=== PATIENT | male | born 1945 | race Caucasian/White ===

== ENCOUNTER 2022-11-10 08:00 | Outpatient (CLI) | payer MEDICARE, BC | END 2022-11-10 23:59 | disposition home or self-care (01) | LOC: LAB.R 08:00 | PROVIDERS: ATTEND Physician Assistant Medical | DX: N39.0 Urinary tract infection, site not specified (principal) | CPT/HCPCS: 87086; 87181 ==

== ENCOUNTER 2022-11-18 10:40 | Outpatient (CLI) | payer MEDICARE, BC ==
[2022-11-18] MEDS ORDERED: iohexoL-300 100 ML VIAL ONE (10:47)
--- NOTE | 2022-11-18 16:39 | CT Report ---
PROCEDURE: CHEST W INDICATIONS: PROSTATE CA CONTRAST: 100ml Omnipaque 300 TECHNIQUE: After the administration of intravenous contrast, 1 mm axial images were acquired from the pulmonary apices through the posterior costophrenic angles. Axial 5 mm soft tissue kernel reconstructions were performed as well as 8 mm axial MIP and coronal and sagittal 5 mm reformations. For radiation dose reduction, the following was used: automated exposure control, adjustment of mA and/or kV according to patient size. COMPARISON: None. FINDINGS: Image quality: Good Lungs and pleura:No airspace consolidation. Scattered scarring/atelectasis. No effusion. No overtly s uspicious nodule. Suspected granuloma/micronodules are present, for example in the right series 8 phillip ge 123, and on the left image 181, attention on follow-up Indeterminate subpleural nodularity at the diaphragmatic surfaces (coronal image 32 and 33, measuring a thickness of 6 to 7 mm. Mediastinum, heart, and esophagus: No hiatal hernia. Normal heart size. Coronary calcifications. No p athologic adenopathy by size criteria. Chest wall and thyroid: Thyroid is unremarkable. No axillary or supraclavicular adenopathy identified . Upper abdomen: Separately dictated Bones: Degenerative changes without acute or suspicious osseous finding. Partially visualized left hu meral head hardware. IMPRESSION: No definite kaveh metastases or suspicious lung nodules. However, there is subpleural nodularity bakari g the bilateral diaphragmatic surfaces, measuring 6 to 7 mm in thickness, for which close attention o n follow-up is recommended in the setting of malignancy history other findings as above.. Reviewed by: Chato Salter MD on 11/18/2022 4:38 PM PDT Approved by: Chato Salter MD on 11/18/2022 4:38 PM PDT Station ID: [id number]
--- NOTE | 2022-11-18 16:43 | CT Report ---
PROCEDURE: ABDOMEN/PELVIS W INDICATIONS: PROSTATE CA CONTRAST: 100ml Omnipaque 300 TECHNIQUE: After the administration of IV and oral contrast, 5 mm thick sections acquired from the diaphragms to the symphysis. 5 mm thick coronal and sagittal reformats were acquired. For radiation dose reducti on, the following was used: automated exposure control, adjustment of mA and/or kV according to freeman ent size. COMPARISON: None FINDINGS: Image quality: Good Lower chest: Separately dictated Solid organs: The liver is unremarkable. No pathologic dilation of biliary tree or pancreatic duct. T he gallbladder is unremarkable. The pancreatic parenchyma is mildly atrophic. No splenomegaly. No adr enal nodules. No hydronephrosis. Vessels and lymph nodes: The portal vein is patent. No pathologic adenopathy by size criteria. Bowel and peritoneum: No small bowel obstruction. No pathologic ascites. Possible tiny hiatal hernia and possible reflux into the distal esophagus, not well evaluated on CT. There are colonic diverticul a. Body wall: Tiny fat-containing inguinal and umbilical hernias. Pelvis: Bladder is unremarkable. Primary prostate malignancy with heterogeneous right prostate enhanc ement, not well evaluated on CT. Bones: Tiny osseous sclerotic lesions may represent bone islands most notably at the proximal right f emur. No overtly suspicious bone lesion identified. There are degenerative changes. IMPRESSION: No active metastases identified. Indeterminate small sclerotic lesions, for example in the right prox imal femur might represent bone islands, attention on follow-up. Primary prostate malignancy is not w ell evaluated on CT. Chest findings are separately dictated. Reviewed by: Chato Salter MD on 11/18/2022 4:42 PM PDT Approved by: Chato Salter MD on 11/18/2022 4:42 PM PDT Station ID: [id number]
[2022-11-18] MEDS ORDERED: DIATRIZOATE MEGLU/DIATRIZO SOD 30 ML BOTTLE PO ONE (18:02)
[2022-11-18] MEDS ORDERED: iohexoL-300 100 ML VIAL IVP ONE (18:03)
== END 2022-11-18 10:41 | disposition home or self-care (01) ==
LOC: DI 10:40
PROVIDERS: ATTEND Urology
DX: C61 Malignant neoplasm of prostate (principal); R91.8 Other nonspecific abnormal finding of lung field; M89.9 Disorder of bone, unspecified
CPT/HCPCS: 71260; 74177; Q9963; Q9967

== ENCOUNTER 2023-06-11 07:04 | Outpatient (CLI) | payer MEDICARE, BC | END 2023-06-11 07:05 | disposition home or self-care (01) | LOC: LAB.S 07:04 | PROVIDERS: ATTEND Nurse Practitioner Adult Health | DX: C61 Malignant neoplasm of prostate (principal) | CPT/HCPCS: 36415; 84153 ==

== ENCOUNTER 2023-07-01 07:37 | Outpatient (CLI) | payer MEDICARE, BC | END 2023-07-01 07:38 | disposition home or self-care (01) | LOC: DI 07:37 | PROVIDERS: ATTEND Physician Assistant Medical | DX: R01.1 Cardiac murmur, unspecified (principal); I51.7 Cardiomegaly | CPT/HCPCS: 93306 ==

== ENCOUNTER 2023-08-04 07:05 | Outpatient (CLI) | payer MEDICARE, BC | END 2023-08-04 07:06 | disposition home or self-care (01) | LOC: LAB.S 07:05 | PROVIDERS: ATTEND Nurse Practitioner Adult Health | DX: C61 Malignant neoplasm of prostate (principal) | CPT/HCPCS: 36415; 84153 ==

== ENCOUNTER 2023-10-08 14:36 | Emergency (ER) | payer MEDICARE, BC ==
[2023-10-08 15:22] LABS: BASOPHILS # (AUTO) 0.1 10^3/uL (0.0-0.1); BASOPHILS % (AUTO) 0.9 %; EOSINOPHILS # (AUTO) 0.5 10^3/uL (0.0-0.7); EOSINOPHILS % (AUTO) 5.8 %; HCT - HEMATOCRIT 44.1 % (42.0-52.0); HGB - HEMOGLOBIN 14.5 g/dL (14.0-18.0); LYMPHOCYTES # (AUTO) 1.4 10^3/uL (1.5-3.5); LYMPHOCYTES % (AUTO) 17.8 %; MEAN CORPUSCULAR HEMOGLOBIN 30.9 pg (27.0-31.0); MEAN CORPUSCULAR HGB CONC 32.9 g/dL (32.0-36.0); MEAN CORPUSCULAR VOLUME 93.8 fL (80.0-94.0); MEAN PLATELET VOLUME 10.4 fL (7.4-11.4); MONOCYTES # (AUTO) 1.1 10^3/uL (0.0-1.0); MONOCYTES % (AUTO) 14.2 %; NEUTROPHILS # (AUTO) 4.9 10^3/uL (1.5-6.6); NEUTROPHILS % (AUTO) 60.9 %; PLT - PLATELET COUNT 176 10^3/uL (130-450); RED CELL DISTRIBUTION WIDTH 12.9 % (12.0-15.0)
[2023-10-08 15:46] LABS: TROPONIN I HIGH SENSITIVITY 12.7 ng/L (2.3-19.7)
--- NOTE | 2023-10-08 15:46 | XRAY Report ---
PROCEDURE: Chest 1V INDICATIONS: Chest pain TECHNIQUE: One view of the chest was acquired. COMPARISON: None. FINDINGS: Surgical changes and devices: None. Lungs and pleura: No pleural effusions or pneumothorax. Lungs are clear. Eventration of the right hemidiaphragm. Mediastinum: Mediastinal contours appear normal. Heart size is normal. Bones and chest wall: No suspicious bony lesions. Overlying soft tissues appear unremarkable. IMPRESSION: No acute cardiopulmonary process. Reviewed by: Nikita Green MD on 10/08/2023 3:45 PM [facility] Approved by: Nikita Green MD on 10/08/2023 3:45 PM [facility] Station ID: [id number]
[2023-10-08 15:52] LABS: ALBUMIN 4.3 g/dL (3.2-5.5); ALBUMIN/GLOBULIN RATIO 1.7 (1.0-2.2); ALKALINE PHOSPHATASE 58 IU/L (42-121); ALT ALANINE AMINOTRANSFERASE 34 IU/L (10-60); AST ASPARTATE AMINOTRANSFERASE 28 IU/L (10-42); BILIRUBIN,TOTAL 0.6 mg/dL (0.2-1.0); BUN - BLOOD UREA NITROGEN 19 mg/dL (6-20); CALCIUM 9.6 mg/dL (8.5-10.3); CARBON DIOXIDE - CO2 32 mmol/L (21-32); CHLORIDE 104 mmol/L (101-111); GFR - MDRD 73 (>89); GLUCOSE 88 mg/dL (74-104); POTASSIUM 4.6 mmol/L (3.5-4.5); SODIUM 141 mmol/L (135-145); TOTAL PROTEIN 6.9 g/dL (6.4-8.9)
[2023-10-08 16:00] LABS: LIPASE < 10 U/L (11-82)
--- NOTE | 2023-10-08 19:13 | ED Physician Documentation ---
PD HPI CHEST PAIN - Stated complaint Stated Complaint: HIGH HR/BP, MILD CHEST PX - Chief complaint Chief Complaint: Cardiac - History obtained from History obtained from: Patient - Additional information Additional information: The patient comes to the emergency department chief complaint of a prolonged episode of what felt like "indigestion" while mowing the lawn today. The pt states he has gotten these episodes for many years, ever since having a stent placed. His rock duster always tells him he's doing fine at check-ups, per pt. The pt states he has a long-standing prescription for NTG, but he never has used it until today. He says he almost always gets the indigestion feeling when he is riding his mower, and he thinks he is reacting to the grass. He states that today's episode concerned him because it lasted longer than usual. Pt states he kept mowing the lawn, thinking it would just go away, but after about 30 min, he finally went inside and took a NTG. This did relieve the discomfort, and pt states that other than a very slight pressure sensation, he feels much better. No other sx. No dyspnea, nausea, or sweating. No lightheadedness. No fatigue. Pt has not been ill with anything recently. No decrease in exercise tolerance. PD PAST MEDICAL HISTORY - Allergies Allergies/Adverse Reactions: Allergies Allergy/AdvReac Type Severity Reaction Status Date / Time No Known Drug Allergies Allergy Verified 10/08/23 14:50 PD ED PE NORMAL - Vitals Vital signs reviewed: Yes - General General: Alert and oriented X 3, No acute distress, Well developed/nourished - HEENT HEENT: Atraumatic, PERRL, EOMI, Moist mucous membranes - Neck Neck: Supple, no meningeal sign - Cardiac Cardiac: RRR, No murmur - Respiratory Respiratory: No respiratory distress, Clear bilaterally - Abdomen Abdomen: Soft, Non tender, Non distended - Derm Derm: Normal color, Warm and dry, No rash - Extremities Extremities: No deformity, No edema, No calf tenderness / cord - Neuro Neuro: Alert and oriented X 3 - Psych Psych: Normal mood, Normal affect Results - Vitals Vitals: Oxygen O2 Source Room air - EKG (time done) 1443 EKG releavant findings:: EKG personally interpreted by author of this note. Relevant findings are: Rate: Rate (enter#) (69) Rhythm: NSR [place]: Normal Intervals: Normal SC QRS: Normal Ischemia: Normal ST segments Compare to prior EKG: Old EKG unavailable Computer interpretation: Agree with computer - Labs Labs: Laboratory Tests 10/08/23 10/08/23 10/08/23 15:16 15:16 18:22 WBC 8.0 RBC 4.70 Hgb 14.5 Hct 44.1 MCV 93.8 MCH 30.9 MCHC 32.9 RDW 12.9 Plt Count 176 MPV 10.4 Neut # (Auto) 4.9 Lymph # (Auto) 1.4 L [place] # (Auto) 1.1 H Eos # (Auto) 0.5 Baso # (Auto) 0.1 Absolute Nucleated RBC 0.00 Nucleated RBC % 0.0 Sodium 141 Potassium 4.6 H Chloride 104 Carbon Dioxide 32 Anion Gap 5.0 L BUN 19 Creatinine 1.0 Estimated GFR (MDRD) 73 L Glucose 88 Calcium 9.6 Total Bilirubin 0.6 AST 28 ALT 34 Alkaline Phosphatase 58 Troponin I High Sens 12.7 15.3 Total Protein 6.9 Albumin 4.3 Globulin 2.6 Albumin/Globulin Ratio 1.7 Lipase < 10 L - Rads (name of study) chest XR Relevant Findings:: Final report received, See rad report (neg) PD Medical Decision Making - ED course Complexity details: reviewed results, re-evaluated patient, considered differential, d/w patient ED course: The pt was worked up with labs, EKG, and CXR, all of which were negative. The pt's sx were atypical and long-standing, but given the response to NTG and the known underlying CAD, I felt he should call his rock duster's office the next day to follow up on this episode. His last angiogram was several years ago, and we have discussed that he should ask his rock duster if another one is recommended. We have also discussed the need for immediate return, should the pt have a worse episode of chest pain, especially with other concerning associated symptoms, which I have detailed with him. Pt expresses understanding. Departure - Departure Disposition: 01 Home, Self Care Clinical Impression: Angina pectoris Chest pain Qualifiers: Chest pain type: unspecified Qualified Code(s): R07.9 - Chest pain, unspecified Condition: Stable Instructions: ED Chest Pain Angina Stable Comments: Your cardiac enzymes on repeat evaluation were still within normal limits. Given that you have a history of a stent, it is entirely possible that you have some coronary artery disease that is causing episodes of angina, a condition where the heart muscle is not quite getting enough blood flow in a certain area, but not to the degree to cause a heart attack. In general, nitroglycerin is helpful for this and if you have an episode like you had today, you should try taking the nitroglycerin. Nitroglycerin can also help other smooth muscle spasm, such as in the esophagus, so there is a possibility that this is esophageal point pain you are experiencing. However, this would be a diagnosis that we would consider once we made sure it is not actually your heart. For now, the best plan is to follow-up with your primary care physician. If you can be seen sooner than 2 weeks from now that would be ideal, but if not, then at least be sure to keep the appointment you have in 2 weeks. At that time, you should discuss having a repeat stress test and being referred to cardiology for further evaluation. Please be sure you take your home medications and that you take the nitroglycerin as needed. You should be taking an aspirin every day as well. If you develop severe chest pain shortness of breath that will not go away, please return to the emergency department as soon as possible. Forms: PCP List Discharge Date/Time: 10/08/23 19:43
[2023-10-08 19:46] VITALS: BP 131/72; O2SAT 99
== END 2023-10-08 19:43 | disposition home or self-care (01) ==
LOC: ED 14:36
DX: I20.9 Angina pectoris, unspecified (principal); R07.9 Chest pain, unspecified
CPT/HCPCS: 36415; 80053; 83690; 84484; 85025; 93005; 99283; 99284

== ENCOUNTER 2023-11-19 07:05 | Outpatient (CLI) | payer MEDICARE, BC | END 2023-11-19 07:06 | disposition home or self-care (01) | LOC: LAB.S 07:05 | PROVIDERS: ATTEND Urology | DX: C61 Malignant neoplasm of prostate (principal) | CPT/HCPCS: 36415; 84153 ==

== ENCOUNTER 2024-01-18 07:04 | Outpatient (CLI) | payer MEDICARE, BC | END 2024-01-18 07:05 | disposition home or self-care (01) | LOC: LAB.S 07:04 | PROVIDERS: ATTEND Nurse Practitioner Adult Health | DX: C61 Malignant neoplasm of prostate (principal) | CPT/HCPCS: 36415; 84153 ==

== ENCOUNTER 2024-01-29 10:47 | Outpatient (CLI) | payer MEDICARE, BC ==
--- NOTE | 2024-01-29 11:27 | Sleep Patient Instructions ---
Sleep Center Visit Summary - Patient Visit Information Reason for Visit: Initial consult for evaluation of sleep disordered breathing and other sleep issues. - Patient Instructions Additional Instructions: You will be completing a sleep study, either an in-lab polysomnography (PSG) or home sleep study (HST). You will follow-up in the sleep care office after the sleep study is completed to hear the results and talk about therapy, if needed. You will be called by our office staff to schedule this appointment, but you may contact us with any questions. - Clinic Information Contact: [facility] [address] [place] [id number] [email or web address] T: [phone]
--- NOTE | 2024-01-29 11:34 | SLEEP CARE CONSULTATION ---
Information from patient questionnaire entered by Rena Hummel. I have reviewed and concur with the information entered by Rena Hummel. This document represents the service I personally performed and the decisions made by me, Eboni Leon ARNP. History of Present Illness Service Date and Time: 01/29/2024 1047 Reason for Visit: New patient, Previously diagnosed sleep apnea Accompanied by: Spouse (Dee) Chief Complaint: reports: Insomnia, Excessive daytime sleepiness, Frequent awakenings at night Usual bedtime: 2100 in his recliner Time it takes to fall asleep: A FEW MINS - 30MINS, with sleep aide Snores at night: Yes (used to, not much in chair) Observed to quit breathing while asleep: Yes (used to according to ) Sleeps alone due to snoring: No Number of times waking at night: 2-4 Reasons for waking at night: reports: Other (UNKNOWN ). 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 His current complaints are excessive daytime sleepiness, frequent night awakenings and insomnia. He says he tried to use the PAP device the about 6 months and could not tolerate it. He does not want to have something on his face. He says he sleeps 6 hours on average. He and his are most concerned about his falling asleep/drowsiness when sitting still and when driving. His PCP felt that his WENDY not being treated may be contributing to his heart condition. His civil engineering director is evaluating current heart issues and swelling in his legs. He sleeps sitting in his recliner because he does not like sleeping laying on bed. His says he used to snore very loudly and have pauses in breathing that she noted. Since he sleeps in his chair she has not heard him snoring. He says he does not wake up gasping for air when sleeping in his chair. - Parasomnia Symptoms Ever been unable to move upon waking from sleep: No Walks in sleep: No Talks in sleep: No Ever acted out dreams in sleep: No Ever felt weak in the knees when startled or emotional: No Bothered by creepy, crawly, restless sensations in legs: Yes (RLS, treated) Problems with memory or concentration: Yes Subjective Initial [place] Sleepiness Scale score: 15 (12/07/23) Past Medical History Past Medical History: reports: Hypertension, Coronary Heart Disease (stent in anterior vessel 1997), Impotence Social History The patient's occupation is a RETIRED. Patient is and lives in . Have you smoked in the past 12 months: No Cigarettes per day (20/pack): 20 Years of smokin Quit date: 1974 Smoking Pack Years: 10.0 Alcohol use: Yes Alcohol amount and frequency: 1-2 OZ ONCE DAIYLY Caffeine use: Yes Caffeine amount and frequency: 1-2 CUPS DAILY Family History Family history of sleep disordered breathing: No Allergies and Home Medications Known drug allergies: No Drug allergies reviewed: Yes Home medication list reviewed: Yes (as listed) Allergy and home medication list: Allergies No Known Drug Allergies Allergy (Verified 12/16/23 16:24) Home Medications Medication Instructions Recorded Confirmed Last Taken Type Acetaminophen [Aphen] See Rx Instructions .ROUTE .COMPLEX 01/29/24 01/29/24 Unknown History Aspirin [Vazalore] See Rx Instructions .ROUTE .COMPLEX 01/29/24 01/29/24 Unknown History Atorvastatin Calcium [Lipitor] See Rx Instructions .ROUTE .COMPLEX 01/29/24 01/29/24 Unknown History Cetirizine [ZyrTEC] See Rx Instructions .ROUTE .COMPLEX 01/29/24 01/29/24 Unknown History Gabapentin [Neurontin] See Rx Instructions .ROUTE .COMPLEX 01/29/24 01/29/24 Unknown History Ibuprofen See Rx Instructions .ROUTE .COMPLEX 01/29/24 01/29/24 Unknown History Losartan [Cozaar] See Rx Instructions .ROUTE .COMPLEX 01/29/24 01/29/24 Unknown History Multivitamin See Rx Instructions .ROUTE .COMPLEX 01/29/24 01/29/24 Unknown History Nitroglycerin [Nitrostat] See Rx Instructions .ROUTE .COMPLEX 01/29/24 01/29/24 Unknown History Omeprazole See Rx Instructions .ROUTE .COMPLEX 01/29/24 01/29/24 Unknown History Pramipexole [Mirapex] See Rx Instructions .ROUTE .COMPLEX 01/29/24 01/29/24 Unknown History hydroCHLOROthiazide See Rx Instructions .ROUTE .COMPLEX 01/29/24 01/29/24 Unknown History [Hydrochlorothiazide] traZODone [Desyrel] See Rx Instructions .ROUTE .COMPLEX 01/29/24 01/29/24 Unknown History Review of Systems Weight gain over past 5 years: 10-15 Cardiovascular: reports: high blood pressure, chest pain, leg or foot swelling, have to sleep sitting up Gastrointestinal: denies: heartburn Neurological: reports: gait or balance problems. denies: headaches Psychiatric: denies: anxiety, depression Ear/Nose/Throat: reports: tonsillectomy, wisdom teeth removed Immunologic: reports: sneezing Physical Exam Vital signs obtained and entered by: RENA Daniels MA Blood Pressure: 147/74 (LEFT ARM) Cuff size: long Heart Rate: 59 O2 Saturation: 99 Height: 5 ft 10 in Weight: 206 lb 12.8 oz Body Mass Index: 29.7 BMI Classification: Overweight Neck circumference: 16.5 Nostrils: patent to airflow Mouth and throat: narrow oropharynx Soft palate: long Hard palate: normal Uvula: normal Uvula visualization: 25% Mallampati Class III Tongue: enlarged in size with teeth pacheco on lateral edges Tonsils: absent bilaterally Neck: normal w/o lymphadenopathy or thyromegaly Heart: regular rate and rhythm Lungs: clear bilaterally Impression and Plan 1. Suspected Obstructive Sleep Apnea-Hypopnea Syndrome, as previously diagnosed and suggested by a history of loud and irregular snoring, frequent awakening during the night, cognitive impairment, and excessive daytime sleepiness. Narrow oropharynx and obesity are common predisposing factors for obstructive sleep apnea-hypopnea syndrome. I recommend proceeding to polysomnography to confirm the diagnosis and to assess severity. If the patient has significant sleep disordered breathing, a manual CPAP titration study will also be performed to find the optimal treatment pressure. I informed the patient of what the sleep studies involve and after some discussion, obtained agreement to proceed. The pathophysiology of obstructive sleep apnea-hypopnea syndrome was discussed with the patient and health risks of cardiovascular and cerebrovascular disease if not treated. Risks of drowsy driving discussed in detail and patient advised to avoid long distance driving and to loop puller at the first sign of drowsiness. Patient agreed to plan. * Schedule polysomnography +- manual CPAP titration study and return in 1-2 weeks after the study to discuss result and initiate therapy. * Avoid long distance driving or driving when feeling sleepy. * Avoid alcohol, sedative and muscle relaxant around bedtime. * Attempt to lose weight. * Review instructions provided by trained office staff on how to prepare for the sleep study. * Return for follow-up after sleep study completed. Counseling Topics: Weight loss health impact Plan: PSG and follow up Visit Type: In Office Time Spent with Patient (minutes): 33 Provider Statement: I spent 100% of the Face to Face Visit with the patient with greater than 50% spent counseling the patient and coordination of care.
[2024-01-29 11:40] VITALS: BP 147/74; O2SAT 99
== END 2024-01-29 10:48 | disposition home or self-care (01) ==
LOC: SC 10:47
PROVIDERS: ATTEND Nurse Practitioner Family
DX: G47.39 Other sleep apnea (principal); E66.3 Overweight; Z87.891 Personal history of nicotine dependence; Z68.29 Body mass index [BMI] 29.0-29.9, adult; I25.10 Atherosclerotic heart disease of native coronary artery without angina pectoris
CPT/HCPCS: 99203; G0463; 99212

== ENCOUNTER 2024-03-28 19:17 | Outpatient (CLI) | payer MEDICARE, BC | END 2024-03-28 19:18 | disposition home or self-care (01) | LOC: SC 19:17 | PROVIDERS: ATTEND Nurse Practitioner Family | DX: G47.33 Obstructive sleep apnea (adult) (pediatric) (principal); G47.61 Periodic limb movement disorder; E66.3 Overweight; Z68.29 Body mass index [BMI] 29.0-29.9, adult | CPT/HCPCS: 95810 ==

== ENCOUNTER 2024-04-08 13:24 | Outpatient (CLI) | payer MEDICARE, BC ==
--- NOTE | 2024-04-08 14:09 | SLEEP CARE CONSULTATION ---
Information from patient questionnaire entered by Cathryn Larry. I have reviewed and concur with the information entered by Cathryn Larry. This document represents the service I personally performed and the decisions made by , Eboni Leon ARNP. History of Present Illness Service Date and Time: 04/08/2024 1324 Accompanied by: Spouse Initial [place] Sleepiness Scale score: 15 (12/07/23) Current [place] Sleepiness Scale score: 2 (on 04/08/24) Additional HPI information: MAAME TABARES returns for follow up and results of the recently performed polysomnography. The sleep study done on 03/28/24 showed severe obstructive sleep apnea with an average AHI of 31.4 and bonnie oxygen saturation of 88%. He had moderate PLMs contributing to sleep fragmentation. I explained the pathophysiology behind obstructive sleep apnea. We then spent quite a bit of time discussing different treatment options. For mild obstructive sleep apnea, surgery and oral appliance are alternatives to nasal CPAP therapy but in moderate or severe cases, nasal CPAP is the most effective and reliable treatment. I advised him that PAP therapy was gold standard for treating sleep apnea and was recommended due to his heart history. Patient has had experience with trying to use a CPAP and a BiPAP. But, he was unable to tolerate anything on his face and discontinued his therapy. Patient does not drink alcohol. Patient was cautioned about risks of drowsy driving until sleepiness symptoms resolve. Patient denies drowsy driving. Sleep Study - Results Type of Sleep Study: Polysomnography Prior sleep studies: Yes Year and Where: 2023 [facility] Polysomnography/Home Sleep Study results: IMPRESSION: The quality of the study is good. The patient had reduced sleep efficiency due to several prolonged awakenings during the night. The sleep architecture was abnormal for sleep fr agmentation and lack of REM and slow wave sleep (N3). Respiratory monitoring showed severe obstructive sleep apnea-hypopnea (AHI = 31.4) associated with frequent arousals, oxyhemoglobin desaturation and mild hypoxia (bonnie oxygen saturation of 88%). The respiratory events occurred predominantly during supine sleep (supine AHI = 56.6; non-supine = 15.38). No audible snore. There was moderate periodic leg movement of sleep, contributing to the sleep fragmentation. Cardiac rhythm was normal sinus rhythm without significant arrhythmia. No abnormal behavior (parasomnia) observed during the night. Allergies and Home Medications Known drug allergies: No Drug allergies reviewed: Yes Home medication list reviewed: Yes (no changes) Allergy and home medication list: Allergies No Known Drug Allergies Allergy Review of Systems Review of systems same as previous: Yes (still evaluating his heart) Physical Exam Vital signs obtained and entered by: Eboni Daniel NP Blood Pressure: 133/59 Cuff size: long (left arm) Heart Rate: 55 O2 Saturation: 97 Height: 5 ft 10 in Weight: 201 lb 3.2 oz Body Mass Index: 28.8 BMI Classification: Overweight Impression and Plan 1. Obstructive Sleep Apnea-Hypopnea Syndrome, severe, with lowest oxygen saturation of 88%. Obviously this is the cause of the patients symptoms of unrefreshed sleep, and excessive daytime sleepiness. Positive pressure therapy could benefit hypertension and cardiac disease (CHD). Patient was previously diagnosed with sleep apnea and said he tried a CPAP, BiPAP and other BiPAP but was unable to tolerate anything on his face. Since on his side he has moderate obstructions (15.3), he could possibly get enough control of sleep apnea doing positional therapy and on oral appliance. He is not sure he could tolerate anything in his mouth either. I advised patient that he may be a good candidate for the Inspire implant device. Patient informed that they would have to qualify for this type of therapy. A referral is needed for an ENT specialist who would evaluate if Inspire therapy is indeed right for them. Qualifications to be evaluated for Inspire therapy include a previous diagnosis of moderate to severe obstructive sleep apnea. They must also have tried, failed or have been unable to tolerate CPAP treatment. They should also have a BMI of 32 or less and do not have any other active implantable devices present (like a pacemaker). Patient will need to undergo a sleep endoscopy where they are put under light sedation and the airway is examined by an endoscope to determine the cause of their sleep apnea. If it is determined that Inspire therapy is right for them than they may proceed to implantation. Patient like the sound of this but he is currently under evaluation for a possible heart issue. He would like to find out what this is prior to getting started on other therapy. If he has to get a pacemaker or other implantable heart device, then he would not be able to get the Inspire implant. I will put in the referral for the Inspire implant evaluation/consultation and he will let us know if he needs further follow-up from us if unable to have the implant to determine therapy for his sleep apnea. In the meantime he is going to continue to sleep in his recliner which allows him to sleep better overall and may decrease his sleep apnea episodes. 2. Periodic limb movement, moderate, that did contribute to the fragmentation of the patients sleep. Periodic limb movement of sleep (PLMS) is characterized by episodes of repetitive limb movements that occur during sleep and usually involve the lower limbs. The etiology is unknown. Patient was advised that no treatment is needed at this time. If symptoms increase, then further evaluation is indicated. 3. Overweight, unspecified. Currently patients BMI is 28.8. Obesity increases the risk of apnea, CPAP pressure requirements and overall health risks especially cardiovascular and diabetes. Thus patient is advised to lose weight. * Referral for Inspire Implant Therapy * Attempt to lose weight. * Avoid supine sleep and elevate head when sleeping * Return in 1-2 months or as needed. Counseling Topics: Sleeping position, Weight loss health impact Prescriptions: Other (Referral for Inspire evaluation) Visit Type: In Office Time Spent with Patient (minutes): 29 Provider Statement: I spent 100% of the Face to Face Visit with the patient with greater than 50% spent counseling the patient and coordination of care.
[2024-04-08 14:16] VITALS: BP 133/59; O2SAT 97
== END 2024-04-08 13:25 | disposition home or self-care (01) ==
LOC: SC 13:24
PROVIDERS: ATTEND Nurse Practitioner Family
DX: G47.33 Obstructive sleep apnea (adult) (pediatric) (principal); G47.61 Periodic limb movement disorder; E66.3 Overweight; Z68.28 Body mass index [BMI] 28.0-28.9, adult
CPT/HCPCS: 99213; G0463; 99212

== ENCOUNTER 2024-04-16 10:16 | Outpatient (CLI) | payer MEDICARE, BC | END 2024-04-16 10:17 | disposition home or self-care (01) | LOC: LAB 10:16 | PROVIDERS: ATTEND Nurse Practitioner Adult Health | DX: C61 Malignant neoplasm of prostate (principal) | CPT/HCPCS: 36415; 84153 ==

== ENCOUNTER 2024-04-28 10:31 | Outpatient (CLI) | payer MEDICARE, BC ==
--- NOTE | 2024-04-28 14:59 | XRAY Report ---
PROCEDURE: Lumbar Spine 4V INDICATIONS: BILATERAL LEG WEAKNESS, BACK PAIN TECHNIQUE: 3 views of the lumbar spine were acquired. COMPARISON: CT of abdomen and pelvis dated 11/18/2022. FINDINGS: Surgical change: None. Bones: 5 [id number] vertebrae are present. There is mild levoscoliosis of lumbar spine with ape x at L3 level. Degenerative endplate changes, loss of disc height and bilateral facet arthrosis is se en. No vertebral body compression fractures. No suspicious bony lesions. Oblique views shows no gross pars defects. Bilateral bony foraminal stenosis is seen at L4-5 and L5-S 1 levels. Soft tissues: Overlying bowel gas pattern is normal. No suspicious soft tissue calcifications. IMPRESSION: Mild levoscoliosis of lumbar spine centered at L3 level. Degenerative disc disease throughout lumbar spine. No acute vertebral body compression fracture. Oblique views shows no pars defects. Bilateral bony foraminal stenosis are noted at L4-5 and L5-S1 le vels. Reviewed by: Hank De MD on 04/28/2024 2:58 PM PDT Approved by: Hank De MD on 04/28/2024 2:58 PM PDT Station ID: [id number]
== END 2024-04-28 10:32 | disposition home or self-care (01) ==
LOC: DI 10:31
PROVIDERS: ATTEND Registered Nurse
DX: M51.36 Other intervertebral disc degeneration, lumbar region (principal); M48.061 Spinal stenosis, lumbar region without neurogenic claudication; M47.816 Spondylosis without myelopathy or radiculopathy, lumbar region; M48.07 Spinal stenosis, lumbosacral region

== ENCOUNTER 2024-05-06 13:46 | Outpatient (CLI) | payer MEDICARE, BC ==
[2024-05-06 14:15] LABS: CREATININE 1.1 mg/dL (0.6-1.3)
[2024-05-06] MEDS ORDERED: iohexoL-300 100 ML VIAL ONE (14:20)
[2024-05-06] MEDS ORDERED: iohexoL-300 150 ML BOTTLE ONE (14:22)
[2024-05-06] MEDS: iohexoL-300 150 ML BOTTLE IVP ONE (16:54)
--- NOTE | 2024-05-08 23:26 | CT Report ---
PROCEDURE: Angio Abdomen Runoff BL INDICATIONS: BILATERAL LEG WEAKNESS, CLAUDICATION CONTRAST: omni, 125 TECHNIQUE: After the administration of intravenous contrast, a CT scan of the abdomen, pelvis and lower extremit ies (to the feet) was performed. Images were recorded and evaluated at appropriate window settings. R eformats: coronal and sagittal. For radiation dose reduction, the following was used: automated expos ure control, adjustment of mA and/or kV according to patient size. COMPARISON: 11/18/2022 FINDINGS: Image quality: Excellent. Abdominal aorta: No evidence of acute aortic syndrome. No significant aneurysm. No significant ather osclerotic disease. Right lower extremity: Common iliac artery: No significant atherosclerotic disease. External iliac artery: No significant atherosclerotic disease. Common femoral artery: No significant atherosclerotic disease. Superficial femoral artery: No significant atherosclerotic disease. Popliteal artery: No significant atherosclerotic disease. Anterior tibial artery: No significant atherosclerotic disease. Peroneal artery: No significant atherosclerotic disease. Posterior tibial artery: No significant atherosclerotic disease. Left lower extremity: Right lower extremity: Common iliac artery: No significant atherosclerotic disease. External iliac artery: No significant atherosclerotic disease. Common femoral artery: No significant atherosclerotic disease. Superficial femoral artery: No significant atherosclerotic disease. Popliteal artery: No significant atherosclerotic disease. Anterior tibial artery: No significant atherosclerotic disease. Peroneal artery: No significant atherosclerotic disease. Posterior tibial artery: No significant atherosclerotic disease. OTHER: Lung bases and heart: Unremarkable. Liver: A couple of subcentimeter hyperattenuating liver lesions, probably representing flash filling hemangiomas or vascular shunts in the absence of metastatic disease or malignancy history. Gallbladder and biliary tree: No radiopaque stones or wall thickening. No biliary dilation. Spleen: No splenomegaly. Pancreas: No pancreatic ductal dilation. Adrenals: No adrenal nodule. Kidneys and ureters: No hydronephrosis. No renal cystic lesion which requires follow up. No solid mas s. Bowel and peritoneum: No bowel distension. No pathologic free fluid. Diverticulosis without evidence of diverticulitis. Lymph nodes: No central or retroperitoneal adenopathy. Vessels: No infrarenal aortic aneurysm. Reproductive organs: Unremarkable. Bladder: No abnormal wall thickening, accounting for underdistention. Pelvic lymph nodes: No pelvic adenopathy by size criteria. Bones: No aggressive osseous abnormality. Other: Moderate left inguinal hernia containing fat. Small umbilical hernia containing fat. IMPRESSION: No hemodynamically significant stenosis in the lower extremities. A couple of subcentimeter hyperattenuating liver lesions, probably representing vascular shunts or fl stepan filling hemangiomas in the absence of metastatic disease or malignancy history. Consider 3 six-mo nth follow-up with MRI for complete characterization (hepatic mass protocol, E[facility]). Moderate left inguinal hernia containing fat. Reviewed by: Nikita Green MD on 05/08/2024 11:25 PM PDT Approved by: Nikita Green MD on 05/08/2024 11:25 PM PDT Station ID: [id number]
== END 2024-05-06 13:47 | disposition home or self-care (01) ==
LOC: LAB 13:46
PROVIDERS: ATTEND Registered Nurse
DX: R29.898 Other symptoms and signs involving the musculoskeletal system (principal); M79.676 Pain in unspecified toe(s); I73.9 Peripheral vascular disease, unspecified; R93.2 Abnormal findings on diagnostic imaging of liver and biliary tract; K40.90 Unilateral inguinal hernia, without obstruction or gangrene, not specified as recurrent
CPT/HCPCS: 36415; 82565